=== PATIENT | female | born 1990 | race Hispanic/Latino ===

== ENCOUNTER 2017-09-28 18:40 | Emergency (ER) | payer OTHER ==
[2017-09-28 19:07] VITALS: O2SAT 100
[2017-09-28] MEDS ORDERED: Sodium Chloride 0.9% 1,000 ML IV STA (20:43)
--- NOTE | 2017-09-28 20:47 | ED PDOC ---
HPI: Abdomen Time Seen by Provider: 09/28/17 20:30 Chief Complaint (Nursing): Abdominal Pain Chief Complaint (Provider): abdominal pain History Per: Patient History/Exam Limitations: no limitations Onset/Duration Of Symptoms: Hrs Current Symptoms Are (Timing): Still Present Location Of Pain/Discomfort: Epigastric Quality Of Discomfort: Cramping, "Pain" Associated Symptoms: Nausea, Vomiting, Diarrhea Additional Complaint(s): 27 y/o female presents for evaluation of abdominal pain x 6 hours. Associated nausea, non bloody vomiting, and diarrhea. Patient states symptoms began after eating a salad with corn, and blue cheese crumbles. Denies fever, chest pain, cough, shortness of breath, urinary symptoms, vaginal bleeding/discharge, urinary symptoms. Patient was evaluated at urgent care and sent to ED for further evaluation. Past Medical History Reviewed: Historical Data, Nursing Documentation, Vital Signs Vital Signs: Last Vital Signs Temp 98.7 F 09/28/17 22:59 Pulse 89 09/28/17 22:59 Resp 18 09/28/17 22:59 BP 114/71 09/28/17 22:59 Pulse Ox 100 09/28/17 23:33 - Medical History PMH: No Chronic Diseases Other PMH: gastric ulcer - Surgical History Surgical History: No Surg Hx - Family History Family History: States: No Known Family Hx - Home Medications Home Medications: Ambulatory Orders Medication Instructions Recorded Dicyclomine [Bentyl] 20 mg PO TID PRN #15 tab 09/29/17 Famotidine [Pepcid] 20 mg PO BID #20 tab 09/29/17 Ondansetron ODT [Zofran ODT] 4 mg PO Q8 PRN #10 odt 09/29/17 - Allergies Allergies/Adverse Reactions: Allergies Allergy/AdvReac Type Severity Reaction Status Date / Time No Known Allergies Allergy Verified 09/28/17 19:01 Review of Systems ROS Statement: Except As Marked, All Systems Reviewed And Found Negative Gastrointestinal: Positive for: Nausea, Vomiting, Abdominal Pain, Diarrhea Physical Exam - Reviewed Nursing Documentation Reviewed: Yes Vital Signs Reviewed: Yes - Physical Exam Appears: Positive for: Well, Non-toxic, Uncomfortable (vomiting) Head Exam: Positive for: ATRAUMATIC, NORMAL INSPECTION, NORMOCEPHALIC Skin: Positive for: Normal Color Eye Exam: Positive for: Normal appearance ENT: Positive for: Normal ENT Inspection Cardiovascular/Chest: Positive for: Regular Rate, Rhythm Respiratory: Positive for: Normal Breath Sounds Gastrointestinal/Abdominal: Positive for: Bowel Sounds, Soft, Tenderness ( epigastric, RUQ, LUQ). Negative for: Distended, Guarding, Rebound Back: Positive for: Normal Inspection Extremity: Positive for: Normal ROM Neurologic/Psych: Positive for: Alert, Oriented - Laboratory Results Result Diagrams: 09/28/17 21:09 09/28/17 21:09 - ECG O2 Sat by Pulse Oximetry: 100 - Progress ED Course And Treament: labs, urine, abdomen u/s EXAM: US Abdomen Limited, Right Upper Quadrant EXAM DATE/TIME: 09/28/2017 8:44 PM CLINICAL HISTORY: 27 years old, female; Pain; Abdominal pain; Epigastric; Additional info: Abd pain, vomiting TECHNIQUE: Real-time ultrasound of the right upper quadrant with image documentation. COMPARISON: There are no prior studies for comparison. FINDINGS: Liver: There is hepatopedal flow in the main portal vein.Liver is unremarkable. Gallbladder: Gallbladder is distended with no stones, sludge or wall thickening. Common bile duct: Common bile duct measures 4.6 mm in diameter. Pancreas: Pancreas is partially obscured by bowel gas. Visualized portion is unremarkable. Right kidney: Right kidney is unremarkable. Aorta: Visualized portions of the aorta and inferior vena cava are unremarkable. IMPRESSION: No gallstones or ductal dilatation Patient was not tender over the gallbladder On re-eval, patient resting comfortably; states she is feeling better. Tolerating PO. Patient educated on leuks in urine; states she will wait for C&S as she is currently having no symptoms of UTI. Patient educated on findings, discharged with rx Pepcid, Zofran, Bentyl. Advised fluids, bland diet. Follow up PMD 2-3 days. Return precautions given. Disposition - Clinical Impression Clinical Impression: Gastroenteritis - Patient ED Disposition Is Patient to be Admitted: No Counseled Patient/Family Regarding: Studies Performed, Diagnosis, Need For Followup, Rx Given - Disposition Referrals: Shakeel Poole MD, PhD [Staff Provider] - Disposition: Routine/Home Disposition Time: 00:31 Condition: IMPROVED Prescriptions: Dicyclomine [Bentyl] 20 mg PO TID PRN #15 tab PRN Reason: Pain, Mild (1-3) Famotidine [Pepcid] 20 mg PO BID #20 tab Ondansetron ODT [Zofran ODT] 4 mg PO Q8 PRN #10 odt PRN Reason: Nausea/Vomiting Instructions: Gastroenteritis (ED) Forms: [facility] (Yoruba), [facility] ED School/Work Excuse
[2017-09-28 21:20] LABS: BASO % 0.2 % (0.0-2.0); EOS % 0.4 % (0.0-4.0); HEMOGLOBIN 14.3 g/dL (12.0-16.0); LYMPH # 0.5 K/uL (1.0-4.3); LYMPH % 5.7 % (20.0-40.0); MEAN CELL VOLUME 91.3 fl (81.0-99.0); MEAN CORPUSCULAR HEMOGLOBIN 30.8 pg (27.0-31.0); MEAN CORPUSCULAR HGB CONC 33.7 g/dL (33.0-37.0); MEAN PLATELET VOLUME 8.3 fl (7.2-11.7); MONO # 0.5 K/uL (0.0-0.8); MONO % 5.9 % (0.0-10.0); NEUT # 7.6 K/uL (1.8-7.0); NEUT % 87.8 % (50.0-75.0); PLATELET COUNT 246 K/uL (130-400); RBC 4.65 Mil/uL (3.80-5.20); WHITE BLOOD COUNT 8.7 K/uL (4.8-10.8)
[2017-09-28 21:21] LABS: SQUAMOUS EPITHIAL 6 /hpf (0-5); URINE BACTERIA FEW (<OCC); URINE BILIRUBIN NEGATIVE (NEGATIVE); URINE BLOOD SMALL (NEGATIVE); URINE CLARITY CLOUDY (Clear); URINE COLOR YELLOW (YELLOW); URINE GLUCOSE (UA) NEG (Normal); URINE LEUKOCYTE ESTERASE MOD Leu/uL (Negative); URINE PROTEIN 30 mg/dL (NEGATIVE); URINE UROBILINOGEN 0.2-1.0 mg/dL (0.2-1.0)
[2017-09-28 21:25] LABS: ALB/GLOB RATIO 1.3 (1.0-2.1); ALBUMIN 4.3 g/dL (3.5-5.0); ALT/SGPT 37 U/L (9-52); AST/SGOT 24 U/L (14-36); BLOOD UREA NITROGEN 15 mg/dl (7-17); CALCIUM 9.3 mg/dL (8.4-10.2); GFR AFRICAN-AMERICAN > 60; GFR NON-AFRICAN AMERICAN > 60; LIPASE 38 U/L (23-300)
[2017-09-28 22:03] LABS: BANDS 2 % (0-2); BASOPHIL 1 % (0-2); LYMPHOCYTE 4 % (20-50); MONOCYTE 6 % (0-10); NEUTROPHIL 84 % (42-75); PLATELET ESTIMATE NORMAL (NORMAL); REACTIVE LYMPHOCYTES 3 % (0-0); TOTAL CELLS COUNTED 100
[2017-09-28 22:04] LABS: OVALOCYTES SLIGHT; STOMATOCYTES SLIGHT
[2017-09-28] MEDS ORDERED: Iohexol 240 (50 ml) ONE (22:53)
[2017-09-28 22:59] VITALS: BP 114/71; PULSE 89; RESP 18; TEMP 98.7
--- NOTE | 2017-09-28 23:27 | US ---
EXAM: US Abdomen Limited, Right Upper Quadrant EXAM DATE/TIME: 09/28/2017 8:44 PM CLINICAL HISTORY: 27 years old, female; Pain; Abdominal pain; Epigastric; Additional info: Abd pain, vomiting TECHNIQUE: Real-time ultrasound of the right upper quadrant with image documentation. COMPARISON: There are no prior studies for comparison. FINDINGS: Liver: There is hepatopedal flow in the main portal vein.Liver is unremarkable. Gallbladder: Gallbladder is distended with no stones, sludge or wall thickening. Common bile duct: Common bile duct measures 4.6 mm in diameter. Pancreas: Pancreas is partially obscured by bowel gas. Visualized portion is unremarkable. Right kidney: Right kidney is unremarkable. Aorta: Visualized portions of the aorta and inferior vena cava are unremarkable. IMPRESSION: No gallstones or ductal dilatation Patient was not tender over the gallbladder
== END 2017-09-29 00:32 | disposition home or self-care (01) ==
LOC: H.ER 18:40
DX: K52.9 Noninfective gastroenteritis and colitis, unspecified (principal); Z87.11 Personal history of peptic ulcer disease
CPT/HCPCS: 76705; 80053; 81003; 81025; 83690; 85025; 87086; 96374; 99284; J1885; J2405; J7040